=== PATIENT | female | born 1990 | race Caucasian/White ===

== ENCOUNTER 2018-04-02 21:27 | Emergency (ER) | payer BC, OTHER ==
[2018-04-02] MEDS: ALBUTEROL 0.083% (NEB) 2.5 MG/3 ML AMP NEB (22:00)
[2018-04-02] MEDS: IPRATROPIUM (NEB) 0.5 MG/2.5 ML AMP NEB (22:00)
[2018-04-02] MEDS: DEXAMETHASONE 10 MG/ML 1 ML INJ PO (22:14)
== END 2018-04-02 23:08 | disposition home or self-care (01) ==
LOC: FTE 21:27
DX: J45.901 Unspecified asthma with (acute) exacerbation (principal); R05 Cough
CPT/HCPCS: 94664; 99283-25